=== PATIENT | female | born 1950 | race Caucasian/White ===

== ENCOUNTER → 2017-12-05 10:52 | Outpatient (CLI) | payer MEDICARE, OTHER, SELFPAY ==
[2017-12-05 12:28] LABS: Add Manual Diff / Slide Review NO; Basophils Percent Auto 0.6 % (0-2); Eosinophils Percent Auto 2.2 % (2-4); Hematocrit 39.5 % (36-46); Hemoglobin 12.6 g/dL (12.0-16.0); Lymphocytes Percent Auto 40.2 % (25-40); Mean Corpuscular HGB Conc 31.9 % (30-36); Mean Corpuscular Hemoglobin 31.1 PG (26-34); Mean Corpuscular Volume 97.4 fL (80-100); Monocytes Percent Auto 8.6 % (3-14); Neutrophils Absolute Auto 3500 /uL (3000-5900); Neutrophils Percent Auto 48.4 % (50-75); Platelet Count 346 X10^3/uL (150-400); Red Blood Cell Count 4.06 X10^6/uL (4.0-5.2); Red Cell Distribution Width 13.8 % (11.6-14.8); White Blood Cell Count 7.3 X10^3/uL (4.5-11.0)
[2017-12-05 15:40] LABS: Alanine Aminotransferase 26 IU/L (9-52); Albumin 4.5 g/dL (3.5-5.0); Albumin Globulin Ratio 1.6 (1.0-2.8); Alkaline Phosphatase 54 U/L (38-126); Aspartate Aminotransferase 20 IU/L (14-36); Bilirubin Total 0.5 mg/dL (0.2-1.3); Blood Urea Nitrogen 40 mg/dL (7-17); Carbon Dioxide 20 mmol/L (22-32); Chloride 109 mmol/L (98-107); Estimated Glomerular Filt Rate 32.2 mL/min (>60); Globulin 2.9 g/dL (1.7-4.1); Glucose 86 mg/dL (80-110); HEMOLYSIS < 15 (0-50); Sodium 141 mmol/L (137-145); Total Protein 7.4 g/dL (6.3-8.2)
[2017-12-05 15:51] LABS: Potassium 6.2 mmol/L (3.4-5.1)
== END ==
PROVIDERS: PCP Family Medicine; Visit Provider Family Medicine
DX: I10 Essential (primary) hypertension (principal); N19 Unspecified kidney failure
CPT/HCPCS: 36415; 80053; 85025

== ENCOUNTER → 2017-12-26 09:39 | Outpatient (CLI) | payer MEDICARE, OTHER, SELFPAY ==
[2017-12-26 10:59] LABS: BUN Creatinine Ratio 20.7 (6-22); Blood Urea Nitrogen 31 mg/dL (7-17); Calcium 10.4 mg/dL (8.4-10.2); Carbon Dioxide 20 mmol/L (22-32); Chloride 111 mmol/L (98-107); Estimated Glomerular Filt Rate 34.7 mL/min (>60); Glucose 88 mg/dL (80-110); HEMOLYSIS < 15 (0-50); Potassium 4.8 mmol/L (3.4-5.1); Sodium 143 mmol/L (137-145)
== END ==
PROVIDERS: PCP Family Medicine; Visit Provider Family Medicine
DX: I10 Essential (primary) hypertension (principal)
CPT/HCPCS: 36415; 80048

== ENCOUNTER → 2018-01-21 12:57 | Outpatient (CLI) | payer MEDICARE, OTHER, SELFPAY ==
[2018-01-21 15:18] LABS: BUN Creatinine Ratio 21.5 (6-22); Blood Urea Nitrogen 28 mg/dL (7-17); Calcium 10.6 mg/dL (8.4-10.2); Carbon Dioxide 22 mmol/L (22-32); Chloride 108 mmol/L (98-107); Glucose 89 mg/dL (80-110); HEMOLYSIS < 15 (0-50); Potassium 5.3 mmol/L (3.4-5.1); Sodium 143 mmol/L (137-145)
== END ==
PROVIDERS: PCP Family Medicine; Visit Provider Family Medicine
DX: I10 Essential (primary) hypertension (principal)
CPT/HCPCS: 36415; 80048

== ENCOUNTER → 2018-04-24 09:24 | Outpatient (CLI) | payer MEDICARE, OTHER, SELFPAY ==
[2018-04-24 09:52] LABS: BUN Creatinine Ratio 23.3 (6-22); Blood Urea Nitrogen 28 mg/dL (7-17); Calcium 10.2 mg/dL (8.4-10.2); Carbon Dioxide 22 mmol/L (22-32); Chloride 107 mmol/L (98-107); Estimated Glomerular Filt Rate 44.9 mL/min (>60); Glucose 106 mg/dL (80-110); HEMOLYSIS 44 (0-50); Sodium 138 mmol/L (137-145)
== END ==
PROVIDERS: PCP Family Medicine; Visit Provider Family Medicine
DX: I10 Essential (primary) hypertension (principal)
CPT/HCPCS: 36415; 80048

== ENCOUNTER → 2018-05-03 09:21 | Outpatient (CLI) | payer MEDICARE, OTHER, SELFPAY ==
[2018-05-03 10:20] LABS: Blood Urea Nitrogen 26 mg/dL (7-17); Calcium 11.1 mg/dL (8.4-10.2); Carbon Dioxide 23 mmol/L (22-32); Chloride 106 mmol/L (98-107); Glucose 100 mg/dL (80-110); HEMOLYSIS < 15 (0-50); Potassium 5.3 mmol/L (3.4-5.1); Sodium 139 mmol/L (137-145)
== END ==
PROVIDERS: PCP Family Medicine; Visit Provider Family Medicine
DX: Z01.812 Encounter for preprocedural laboratory examination (principal)
CPT/HCPCS: 36415; 80048; 82565; 84520

== ENCOUNTER → 2018-05-07 08:57 | Outpatient (CLI) | payer MEDICARE, OTHER, SELFPAY ==
--- NOTE | 2018-05-07 08:59 | DI.MRI.S_ITS ---
PROCEDURE: MR ANGIO ABDOMEN WO/W CON INDICATIONS: CKD TECHNIQUE: Precontrast axial and coronal TruFISP through the abdomen. Dynamic coronal MRA using Care Bolus timing during the administration of contrast. Post-contrast axial VIBE through the kidneys. 3-dimensional maximum intensity projection (MIP) reformats constructed. COMPARISON: None. FINDINGS: Image quality: Degraded by motion artifact. Renal arteries: Single bilateral renal arteries are present, which are moderately stenotic at their origins. Abdominal aorta: Aorta is normal in caliber, and is patent. Mesenteric arteries: Celiac trunk, superior and inferior mesenteric arteries are widely patent. Extravascular soft tissues: Visualized solid organs appear normal in size on limited pre-contrast images. No retroperitoneal or mesenteric adenopathy by size criteria. Bowel loops are normal in caliber. No free fluid. No ventral hernias. Bones: Marrow demonstrates normal overall signal. IMPRESSION: 1. Suboptimal dilation secondary to motion artifact. 2. Moderate renal artery origin stenoses bilaterally. 3. Patent mesenteric vasculature. Dictated by: Francine Madera M.D. on 05/07/2018 at 10:34 Approved by: Francine Madera M.D. on 05/07/2018 at 10:37
== END ==
PROVIDERS: PCP Family Medicine; Visit Provider Family Medicine
DX: N18.9 Chronic kidney disease, unspecified (principal); I70.1 Atherosclerosis of renal artery
CPT/HCPCS: C8902

== ENCOUNTER → 2018-05-30 10:33 | Outpatient (CLI) | payer MEDICARE, OTHER, SELFPAY ==
[2018-05-30 11:25] LABS: BUN Creatinine Ratio 24.1 (6-22); Blood Urea Nitrogen 41 mg/dL (7-17); Carbon Dioxide 19 mmol/L (22-32); Chloride 112 mmol/L (98-107); Estimated Glomerular Filt Rate 30.1 mL/min (>60); Glucose 97 mg/dL (80-110); HEMOLYSIS < 15 (0-50); Sodium 140 mmol/L (137-145)
[2018-05-30 11:40] LABS: Potassium 5.7 mmol/L (3.4-5.1)
== END ==
PROVIDERS: PCP Family Medicine; Visit Provider Family Medicine
DX: I10 Essential (primary) hypertension (principal)
CPT/HCPCS: 36415; 80048

== ENCOUNTER → 2018-07-04 10:51 | Outpatient (CLI) | payer MEDICARE, OTHER, SELFPAY ==
[2018-07-04 13:16] LABS: BUN Creatinine Ratio 22.3 (6-22); Blood Urea Nitrogen 29 mg/dL (7-17); Carbon Dioxide 20 mmol/L (22-32); Chloride 110 mmol/L (98-107); Glucose 96 mg/dL (80-110); HEMOLYSIS < 15 (0-50); Sodium 140 mmol/L (137-145)
[2018-07-04 13:19] LABS: Potassium 5.7 mmol/L (3.4-5.1)
== END ==
PROVIDERS: PCP Family Medicine; Visit Provider Family Medicine
DX: I10 Essential (primary) hypertension (principal)
CPT/HCPCS: 36415; 80048

== ENCOUNTER → 2018-08-08 09:40 | Outpatient (CLI) | payer MEDICARE, OTHER, SELFPAY ==
[2018-08-08 10:21] LABS: Add Manual Diff / Slide Review NO; Basophils Absolute Auto 0 /uL (0-100); Basophils Percent Auto 0.7 % (0-2); Eosinophils Absolute Auto 200 /uL (0-450); Eosinophils Percent Auto 4.3 % (2-4); Hematocrit 38.2 % (36-46); Hemoglobin 12.4 g/dL (12.0-16.0); Lymphocytes Absolute Auto 1800 /uL (1100-4500); Lymphocytes Percent Auto 34.1 % (25-40); Mean Corpuscular HGB Conc 32.5 % (30-36); Mean Corpuscular Volume 95.5 fL (80-100); Monocytes Absolute Auto 400 /uL (0-900); Monocytes Percent Auto 8.4 % (3-14); Neutrophils Absolute Auto 2800 /uL (1500-7000); Neutrophils Percent Auto 52.5 % (50-75); Platelet Count 339 X10^3/uL (150-400); White Blood Cell Count 5.3 X10^3/uL (4.5-11.0)
[2018-08-08 10:46] LABS: Alanine Aminotransferase 19 IU/L (9-52); Albumin 4.3 g/dL (3.5-5.0); Albumin Globulin Ratio 1.3 (1.0-2.8); Alkaline Phosphatase 60 U/L (38-126); Aspartate Aminotransferase 23 IU/L (14-36); BUN Creatinine Ratio 23.6 (6-22); Bilirubin Total 0.6 mg/dL (0.2-1.3); Blood Urea Nitrogen 33 mg/dL (7-17); Calcium 10.9 mg/dL (8.4-10.2); Carbon Dioxide 23 mmol/L (22-32); Chloride 113 mmol/L (98-107); Cholesterol 145 mg/dL (140-199); Estimated Glomerular Filt Rate 37.6 mL/min (>60); Globulin 3.2 g/dL (1.7-4.1); Glucose 104 mg/dL (80-110); HDL Cholesterol 47 mg/dL (40-60); HEMOLYSIS < 15 (0-50); LDL Cholesterol Calculated 80 mg/dL (<100); Sodium 143 mmol/L (137-145); Total Protein 7.5 g/dL (6.3-8.2); Triglycerides 91 mg/dL (35-150)
[2018-08-08 11:21] LABS: Thyroid Stimulating Hormone 2.15 uIU/mL (0.47-4.68)
== END ==
PROVIDERS: PCP Family Medicine; Visit Provider Family Medicine
DX: I10 Essential (primary) hypertension (principal)
CPT/HCPCS: 36415; 80053; 80061; 84443; 85025

== ENCOUNTER → 2018-10-17 11:40 | Outpatient (CLI) | payer MEDICARE, OTHER, SELFPAY ==
[2018-10-17 12:29] LABS: Blood Urea Nitrogen 33 mg/dL (7-17); Calcium 11.1 mg/dL (8.4-10.2); Carbon Dioxide 22 mmol/L (22-32); Chloride 110 mmol/L (98-107); Estimated Glomerular Filt Rate 34.6 mL/min (>60); Glucose 125 mg/dL (80-110); HEMOLYSIS < 15 (0-50); Sodium 140 mmol/L (137-145)
== END ==
PROVIDERS: PCP Family Medicine; Visit Provider Family Medicine
DX: I10 Essential (primary) hypertension (principal)
CPT/HCPCS: 36415; 80048

== ENCOUNTER → 2019-01-14 10:59 | Outpatient (CLI) | payer MEDICARE, OTHER, SELFPAY ==
[2019-01-14 12:14] LABS: BUN Creatinine Ratio 24.3 (6-22); Blood Urea Nitrogen 34 mg/dL (7-17); Calcium 11.3 mg/dL (8.4-10.2); Carbon Dioxide 21 mmol/L (22-32); Chloride 110 mmol/L (98-107); Estimated Glomerular Filt Rate 37.5 mL/min (>60); Glucose 101 mg/dL (80-110); HEMOLYSIS < 15 (0-50); Potassium 5.2 mmol/L (3.4-5.1); Sodium 140 mmol/L (137-145)
== END ==
PROVIDERS: PCP Family Medicine; Visit Provider Family Medicine
DX: I10 Essential (primary) hypertension (principal)
CPT/HCPCS: 36415; 80048

== ENCOUNTER → 2019-04-17 10:15 | Outpatient (CLI) | payer MEDICARE, OTHER, SELFPAY ==
[2019-04-17 12:07] LABS: Add Manual Diff / Slide Review NO; Basophils Absolute Auto 0 /uL (0-100); Basophils Percent Auto 0.8 % (0-2); Eosinophils Absolute Auto 200 /uL (0-450); Eosinophils Percent Auto 3.1 % (2-4); Hematocrit 37.9 % (36-46); Hemoglobin 12.6 g/dL (12.0-16.0); Lymphocytes Absolute Auto 1700 /uL (1100-4500); Lymphocytes Percent Auto 30.9 % (25-40); Mean Corpuscular HGB Conc 33.3 % (30-36); Mean Corpuscular Hemoglobin 31.5 PG (26-34); Mean Corpuscular Volume 94.6 fL (80-100); Monocytes Absolute Auto 500 /uL (0-900); Monocytes Percent Auto 9.2 % (3-14); Neutrophils Absolute Auto 3200 /uL (1500-7000); Platelet Count 322 X10^3/uL (150-400); Red Blood Cell Count 4.01 X10^6/uL (4.0-5.2); Red Cell Distribution Width 14.2 % (11.6-14.8); White Blood Cell Count 5.7 X10^3/uL (4.5-11.0)
[2019-04-17 12:34] LABS: Alanine Aminotransferase 16 IU/L (<35); Albumin 4.3 g/dL (3.5-5.0); Albumin Globulin Ratio 1.3 (1.0-2.8); Alkaline Phosphatase 66 U/L (38-126); Aspartate Aminotransferase 26 IU/L (14-36); BUN Creatinine Ratio 26.9 (6-22); Bilirubin Total 0.6 mg/dL (0.2-1.3); Blood Urea Nitrogen 35 mg/dL (7-17); Calcium 11.2 mg/dL (8.4-10.2); Carbon Dioxide 23 mmol/L (22-32); Chloride 109 mmol/L (98-107); Cholesterol 148 mg/dL (140-199); Estimated Glomerular Filt Rate 40.9 mL/min (>60); Globulin 3.4 g/dL (1.7-4.1); Glucose 103 mg/dL (80-110); HDL Cholesterol 43 mg/dL (40-60); HEMOLYSIS < 15 (0-50); LDL Cholesterol Calculated 81 mg/dL (<100); Potassium 4.7 mmol/L (3.4-5.1); Sodium 141 mmol/L (137-145); Total Protein 7.7 g/dL (6.3-8.2); Triglycerides 120 mg/dL (35-150)
== END ==
PROVIDERS: PCP Family Medicine; Referring Provider Family Medicine; Visit Provider Family Medicine
DX: Z51.81 Encounter for therapeutic drug level monitoring (principal); E78.2 Mixed hyperlipidemia; I10 Essential (primary) hypertension; N19 Unspecified kidney failure
CPT/HCPCS: 36415; 80053; 80061; 85025

== ENCOUNTER → 2019-08-12 11:16 | Outpatient (CLI) | payer MEDICARE, OTHER, SELFPAY ==
[2019-08-12 12:16] LABS: Add Manual Diff / Slide Review NO; Basophils Absolute Auto 100 /uL (0-100); Basophils Percent Auto 0.8 % (0-2); Eosinophils Absolute Auto 200 /uL (0-450); Eosinophils Percent Auto 2.9 % (2-4); Hematocrit 38.6 % (36-46); Hemoglobin 12.7 g/dL (12.0-16.0); Lymphocytes Absolute Auto 2800 /uL (1100-4500); Lymphocytes Percent Auto 37.4 % (25-40); Mean Corpuscular HGB Conc 32.9 % (30-36); Mean Corpuscular Hemoglobin 31.3 PG (26-34); Monocytes Absolute Auto 700 /uL (0-900); Monocytes Percent Auto 9.2 % (3-14); Neutrophils Absolute Auto 3700 /uL (1500-7000); Neutrophils Percent Auto 49.7 % (50-75); Platelet Count 359 X10^3/uL (150-400); Red Blood Cell Count 4.06 X10^6/uL (4.0-5.2); Red Cell Distribution Width 14.4 % (11.6-14.8); White Blood Cell Count 7.4 X10^3/uL (4.5-11.0)
[2019-08-12 12:28] LABS: BUN Creatinine Ratio 31.8 (6-22); Blood Urea Nitrogen 50 mg/dL (7-17); Calcium 11.4 mg/dL (8.4-10.2); Carbon Dioxide 21 mmol/L (22-32); Chloride 112 mmol/L (98-107); Estimated Glomerular Filt Rate 32.9 mL/min (>60); Glucose 109 mg/dL (80-110); HEMOLYSIS < 15 (0-50); Potassium 5.2 mmol/L (3.4-5.1); Sodium 140 mmol/L (137-145)
== END ==
PROVIDERS: PCP Family Medicine; Referring Provider Family Medicine; Visit Provider Family Medicine
DX: I10 Essential (primary) hypertension (principal); N19 Unspecified kidney failure
CPT/HCPCS: 36415; 80048; 85025

== ENCOUNTER → 2019-09-16 11:24 | Outpatient (CLI) | payer MEDICARE, OTHER, SELFPAY ==
[2019-09-16 12:29] LABS: BUN Creatinine Ratio 22.2 (6-22); Blood Urea Nitrogen 34 mg/dL (7-17); Calcium 11.5 mg/dL (8.4-10.2); Carbon Dioxide 21 mmol/L (22-32); Chloride 110 mmol/L (98-107); Estimated Glomerular Filt Rate 33.8 mL/min (>60); Glucose 91 mg/dL (80-110); HEMOLYSIS < 15 (0-50); Sodium 138 mmol/L (137-145)
[2019-09-16 12:40] LABS: Potassium 5.5 mmol/L (3.4-5.1)
== END ==
PROVIDERS: PCP Family Medicine; Referring Provider Family Medicine; Visit Provider Family Medicine
DX: N19 Unspecified kidney failure (principal)
CPT/HCPCS: 36415; 80048

== ENCOUNTER → 2019-11-10 10:42 | Outpatient (CLI) | payer MEDICARE, OTHER, SELFPAY ==
[2019-11-10 11:08] LABS: Add Manual Diff / Slide Review NO; Basophils Absolute Auto 0 /uL (0-100); Basophils Percent Auto 0.6 % (0-2); Eosinophils Absolute Auto 200 /uL (0-450); Hematocrit 38.6 % (36-46); Hemoglobin 12.7 g/dL (12.0-16.0); Lymphocytes Absolute Auto 1900 /uL (1100-4500); Lymphocytes Percent Auto 36.7 % (25-40); Mean Corpuscular Hemoglobin 31.1 PG (26-34); Mean Corpuscular Volume 94.2 fL (80-100); Monocytes Absolute Auto 500 /uL (0-900); Monocytes Percent Auto 9.9 % (3-14); Neutrophils Absolute Auto 2600 /uL (1500-7000); Neutrophils Percent Auto 49.8 % (50-75); Platelet Count 344 X10^3/uL (150-400); Red Cell Distribution Width 13.9 % (11.6-14.8); White Blood Cell Count 5.2 X10^3/uL (4.5-11.0)
[2019-11-10 11:28] LABS: BUN Creatinine Ratio 21.4 (6-22); Blood Urea Nitrogen 34 mg/dL (7-17); Calcium 11.2 mg/dL (8.4-10.2); Carbon Dioxide 29 mmol/L (22-32); Chloride 105 mmol/L (98-107); Estimated Glomerular Filt Rate 32.3 mL/min (>60); Glucose 103 mg/dL (80-110); HEMOLYSIS < 15 (0-50); Sodium 138 mmol/L (137-145)
[2019-11-10 11:29] LABS: Potassium 5.6 mmol/L (3.4-5.1)
== END ==
PROVIDERS: PCP Family Medicine; Referring Provider Family Medicine; Visit Provider Family Medicine
DX: E03.9 Hypothyroidism, unspecified (principal)
CPT/HCPCS: 36415; 80048; 85025

== ENCOUNTER → 2020-03-31 12:06 | Outpatient (CLI) | payer MEDICARE, OTHER, SELFPAY ==
--- NOTE | 2020-03-31 12:08 | DI.NM.S_ITS ---
PROCEDURE: NM PARATHYROID SPECT RADIOPHARMACEUTICAL: 25.9 mCi Tc-99m sestamibi IV. INDICATIONS: Primary hyperparathyroidism TECHNIQUE: After intravenous administration of Tc-99m sestamibi, anterior planar images of the neck and mediastinum were obtained at approximately 10 minutes and 2-3 hours. SPECT images were acquired after the 10 minute planar images. COMPARISON: None. FINDINGS: On the early images, the thyroid gland is bilobed and has normal size and morphology. There is focal increased activity in the inferior aspect of the right thyroid bed. The delayed images show preferential tracer retention in the inferior thyroid bed suggesting parathyroid adenoma. The SPECT images demonstrate focal increased activity in the posterior inferior right thyroid bed. IMPRESSION: Suspect a parathyroid adenoma in the posterior inferior right thyroid bed. Dictated by: Sean Palma M.D. on 03/31/2020 at 15:22 Approved by: Sean Palma M.D. on 03/31/2020 at 15:25
--- OUTSIDE RECORDS SUMMARY | 2020-06-10 08:37 | XMS_ITS | Referral Summary ---
:1950 Author Organization [facility] Address [address] [place] [id number] Care Team Providers Name Role Phone Facundo Suazo Primary Care Provider Reason for Referral Surgical (Routine) Status Reason Specialty Diagnoses / Referred By Referred To Procedures Contact Contact Authorized Specialty General Surgery Diagnoses Parathyroid adenoma Kev Iyer MD [address] [address] [place] [address] Phone: Electronically signed by Kev Iyer MD at Reason for Visit Reason Onset Date Comments Test Results 04/06/2020 Test Result Follow-up 04/06/2020 Encounter Details Date Type Department Care Team Description 04/06/2020 Telephone [facility] Kev Iyer MD Test Results; Test Clinics Nephrology [address] [place] [address] Result Follow-up [id number] [place] [address] [phone] Allergies Active Allergy Reactions Severity Noted Date Comments Cat Dander 03/05/2020 documented as of this encounter (statuses as of 04/15/2020) Medications Medication Sig Dispensed Refills Start Date End Date Status amLODIPine (NORVASC) 2 (two) times a day 0 0 Active 5 mg tablet atorvastatin 0 11/19/2019 Active (LIPITOR) 10 mg tablet aspirin 81 mg EC Take 81 mg by mouth 0 Active tablet fexofenadine (Antonieta 0 07/26/2006 Active Allergy) 180 mg tablet cholecalciferol, Take 125 mg by 0 01/02/2013 Active vitamin D3, 50 mcg mouth (2,000 unit) capsule [id number] Take by mouth 0 Active oil 300-1,000 mg capsule ascorbic acid, Take 1,000 mg by 0 Active vitamin C, (VITAMIN mouth C) 500 mg tablet fluticasone Administer 1 spray 0 Active propionate (FLONASE) into affected 50 mcg/actuation nostril(s) as nasal spray needed losartan (COZAAR) 25 Take 3 tablets by 0 Active mg tablet mouth 2 (two) times a day metoprolol succinate Take 100 mg by 0 Active XL (TOPROL-XL) 100 mg mouth 2 (two) times 24 hr tablet a day documented as of this encounter (statuses as of 04/15/2020) Active Problems Problem Noted Date Hypercalcemia 03/05/2020 CKD stage G3b/A1, GFR 30-44 and albumin creatinine rat io <30 mg/g 03/05/2020 documented as of this encounter (statuses as of 04/15/2020) Social History Tobacco Use Types Packs/Day Years Used Date Never Smoker Smokeless Tobacco: Never Used Alcohol Use Drinks/Week oz/Week Comments Yes Alcohol Habits Answer Date Recorded How often do you have a drink containing alcohol? 2-4 times a month 01/05/2020 How many drinks containing alcohol do you have on a Not aske d 01/05/2020 typical day when you are drinking? How often do you have six or more drinks on one Not asked 01/05/2020 occasion? Sex Assigned at Date Recorded Not on file Job Start Date Occupation Industry Not on file Not on file Not on file documented as of this encounter Miscellaneous Notes Telephone Encounter - Madisyn Chiang RN - 04/15/2020 3:42 PM PSTSpoke with pt to let her know plan to send referral to [facility]. ddendum Note - Kev Iyer MD - 04/15/2020 2:07 PM PST Addended by: KEV IYER on: 04/15/2020 02:07 PM Modules accepted: Orders elephone Encounter - Kev Iyer MD - 04/15/2020 2:07 PM PSTI ordered referral to Dr. Licona for his opinion. Kev Iyer MD elephone Encounter - Madisyn Chiang RN - 04/13/2020 11:07 AM PSTDr Sixto Licona at [facility] might do it but needs to consult with pt before deciding, otherwise Dr Romulo Villanueva at [facility] has done for our pts before. elephone Encounter - Kev Iyer MD - 04/12/2020 4:45 PM PSTCarol and I spoke. She is interested in surgery for her suspected right inferior parathyroid adenoma. Please find out if there is a surgeon in [place] who does these surgeries as she would prefer to be done close to home. Kev Iyer MD elephone Encounter - Bianca Johnson - 04/12/2020 9:09 AM PSTPt is calling back and asking for Dr. Iyer to call her again. Best number: [phone] OK TO [facility] elephone Encounter - Kev Iyer MD - 04/09/2020 5:25 PM PSTI called Kirsten. Her NM Parathyroid scan does show a suspicion of a posterior inferior parathyroid ad enoma. I suggested seeing a surgeon. She will discuss this with her and call me back. Kev Iyer MD elephone Encounter - Dipti Fang MA - 04/09/2020 5:09 PM PSTPlease advise. Telephone Encounter - Dalila Victoria - 04/09/2020 2:17 PM PSTPlease call the Pt with the results [phone] elephone Encounter - CodyHeidiDalila R - 04/06/2020 9:29 AM PSTReceived lab results from [facility] elephone Encounter - Ross, Dalila R - 04/06/2020 9:21 AM PSTCalled [facility] spoke with Lara to obtain labs, most recent was 12.02.20 which we have in system already. Called Kirsten, she got imaging done at [facility], will call to obtain results for Dr. Iyer to review. elephone Encounter - Cesia Reyna - 04/06/2020 9:10 AM PSTPt calling to get results from thyroid From last week . Please call to discuss @[phone] Ok to leave detail message . documented in this encounter Plan of Treatment Upcoming Encounters Date Type Specialty Care Team Description 07/07/2020 Office Visit Nephrology Kev Iyer MD [address] [place] [id number] Scheduled Referrals Name Type Priority Associated Diagnoses Order S chedule Referral to Outpatient Referral Routine Parathyroid adenoma O rdered: General Surgery 04/15/2020 documented as of this encounter Visit Diagnoses Diagnosis Parathyroid adenoma - Primary Benign neoplasm of parathyroid gland documented in this encounter Insurance Payer Benefit Plan / Group Subscriber ID Effective Dates Phone Address Type MEDICARE MEDICARE PART A AND B [id number] 2016-Present SUPP FOR LIFE SUPP [id number] 2016-Present documented as of this encounter Advance Directives Documents on File Type Date Recorded 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
== END ==
PROVIDERS: PCP Family Medicine; Referring Provider Internal Medicine Nephrology; Visit Provider Internal Medicine Nephrology
DX: E21.0 Primary hyperparathyroidism (principal)
CPT/HCPCS: 78071; A9500

== ENCOUNTER → 2021-12-15 10:15 | Outpatient (CLI) | payer MEDICARE, OTHER, SELFPAY ==
[2021-12-15 12:46] LABS: Add Manual Diff / Slide Review NO; Basophils Absolute Auto 0 /uL (0-100); Basophils Percent Auto 0.5 % (0-2); Eosinophils Absolute Auto 200 /uL (0-450); Eosinophils Percent Auto 2.8 % (2-4); Hematocrit 38.5 % (36-46); Hemoglobin 12.6 g/dL (12.0-16.0); Lymphocytes Absolute Auto 2400 /uL (1100-4500); Lymphocytes Percent Auto 28.8 % (25-40); Mean Corpuscular HGB Conc 32.8 % (30-36); Mean Corpuscular Hemoglobin 29.9 PG (26-34); Mean Corpuscular Volume 91.2 fL (80-100); Monocytes Absolute Auto 600 /uL (0-900); Monocytes Percent Auto 7.4 % (3-14); Neutrophils Absolute Auto 5000 /uL (1500-7000); Neutrophils Percent Auto 60.5 % (50-75); Platelet Count 419 X10^3/uL (150-400); Red Blood Cell Count 4.23 X10^6/uL (4.0-5.2); Red Cell Distribution Width 14.9 % (11.6-14.8); White Blood Cell Count 8.3 X10^3/uL (4.5-11.0)
[2021-12-15 13:07] LABS: Alanine Aminotransferase 21 IU/L (<35); Albumin 4.4 g/dL (3.5-5.0); Albumin Globulin Ratio 1.3 (1.0-2.8); Alkaline Phosphatase 69 U/L (38-126); Aspartate Aminotransferase 23 IU/L (14-36); Bilirubin Total 0.5 mg/dL (0.2-1.3); Blood Urea Nitrogen 36 mg/dL (7-17); Calcium 9.6 mg/dL (8.4-10.2); Carbon Dioxide 21 mmol/L (22-32); Chloride 108 mmol/L (98-107); Cholesterol 183 mg/dL (140-199); Estimated Glomerular Filt Rate 33 mL/min (>60); Globulin 3.5 g/dL (1.7-4.1); Glucose 97 mg/dL (80-110); HDL Cholesterol 48 mg/dL (40-60); HEMOLYSIS 19 (0-50); LDL Cholesterol Calculated 112 mg/dL (<100); Potassium 4.1 mmol/L (3.4-5.1); Sodium 140 mmol/L (137-145); Total Protein 7.9 g/dL (6.3-8.2); Triglycerides 115 mg/dL (35-150)
[2021-12-15 14:06] LABS: TSH w/ Reflex to FT4 2.73 uIU/mL (0.47-4.68)
[2021-12-16 09:44] LABS: Calcium 9.8 mg/dL (8.7-10.3); Parathyroid Hormone, Intact 58 pg/mL (15-65)
== END ==
PROVIDERS: PCP Family Medicine; Referring Provider Family Medicine; Visit Provider Family Medicine
DX: E78.2 Mixed hyperlipidemia (principal); E83.52 Hypercalcemia; I10 Essential (primary) hypertension; I70.1 Atherosclerosis of renal artery
CPT/HCPCS: 36415; 80053; 80061; 82310; 83970; 84443; 85025

== ENCOUNTER → 2023-04-10 11:14 | Outpatient (CLI) | payer MEDICARE, OTHER, SELFPAY ==
--- NOTE | 2023-04-10 | DI.MG.S_ITS ---
BILATERAL DIGITAL SCREENING MAMMOGRAM 3D/2D WITH CAD: 04/10/2023 CLINICAL: Routine screening. Comparison is made to exams dated: 04/07/2014 mammogram, 06/12/2011 mammogram - [facility], and 11/04/2009 mammogram - [facility]. Both breasts are almost entirely fatty (category a/<25% glandular tissue). Current study was also evaluated with a Computer Aided Detection (CAD) system. No significant masses, calcifications, or other findings are seen in either breast. There has been no significant interval change. IMPRESSION: NEGATIVE There is no mammographic evidence of malignancy. A 1 year screening mammogram is recommended. Based on the Tyrer Cuzick model (a risk assessment model) the patient's lifetime risk is 2.7% and her 10 year risk is 1.8%. According to the ACR, ACS, and NCCN guidelines, an annual breast MRI exam along with mammogram is recommended if the patient's lifetime risk is 20% or greater. This exam was interpreted at Station ID: [id number]. NOTE: For mammograms, a report in lay terms will be sent to the patient. Approximately 15% of breast malignancies will not be visualized mammographically. In the management of a palpable breast mass, a negative mammogram must not discourage biopsy of a clinically suspicious lesion. Electronically Signed By: Sheree prabhakar/mariia:04/10/2023 16:38:03 letter sent: Normal Exam ACR BI-RADS Category 1: Negative 3341F
== END ==
PROVIDERS: PCP Family Medicine; Referring Provider Family Medicine; Visit Provider Family Medicine
DX: Z12.31 Encounter for screening mammogram for malignant neoplasm of breast (principal)
CPT/HCPCS: 77063; 77067

== ENCOUNTER 2023-05-18 08:55 | Day surgery (SDC) | payer MEDICARE, OTHER, SELFPAY ==
--- NOTE | 2023-05-18 | PATH_ITS ---
[facility] Accession Number: [id number] No. of containers..02 Tissue . 01 Material submitted: . PART A: colon - DESCENDING COLON POLYP PART B: colon - CECAL POLYP . 01 Diagnosis: A. Colon, descending, polyp biopsy: Tubular adenoma. -- B. Colon, cecum, polyp biopsy: Benign polypoid colonic mucosa. Negative for dysplasia. TXN 05/23/2023 1135 Local . 01 Electronically signed: . Vicki Pisano MD, Pathologist NPI- [id number] . 01 Gross description: . Part A: DESCENDING COLON POLYP: Received in formalin are 2 fragment(s) of lemos, soft tissue measuring 0.1 x 0.1 x 0.1 cm to 0.3 x 0.3 x 0.3 cm submitted entirely in 1 cassette(s) Part B: CECAL POLYP: Received in formalin is 1 fragment(s) of lemos, soft tissue measuring 0.3 x 0.2 x 0.2 cm submitted entirely in 1 cassette(s) /EMILY 05/21/2023 1808 Local . 01 Pathologist provided ICD-10: Z12.11 . 01 CPT . 553939, 521945 Specimen Comment: A courtesy copy of this report has been sent to [phone] Performed at: 01 [facility] [address] [place] [address], [place], [place] [id number] MD Timur Vargas MD Phone: [phone]
[2023-05-18 11:04] VITALS: BP 137/66; PULSE 62; RESP 14; TEMP 37.1
[2023-05-18] MEDS: LACTATED RINGERS 1,000 ML 42 ML IV (11:13)
--- NOTE | 2023-05-18 11:58 | PM.OP.COLON ---
Operative Date/Time/Diagnoses Date of procedure: 05/18/23 Time of procedure: 11:58 Pre-op diagnosis: Colon cancer screening Procedure & Clinicians Study performed: colonoscopy with anesthesia and cold forcep polypectomy x2 Same procedure as scheduled: Yes Indications: colon cancer screening Surgeon: Italia Rae Procedure Notes Procedure in detail: Preop diagnosis: Colon cancer screening Postop diagnosis: Same Operative procedure: Colonoscopy with cold forceps polypectomy using anesthesia Procedure: Patient placed in a lateral position. Rectal exam performed showing normal tone no masses. Scope was inserted into the rectum and advanced to ileocecal valve with minimal difficulty. Insufflation extraction scope including retroflex had the above findings. There were 2 polypectomies done using cold forceps polypectomies see description in the findings Findings: Small sessile polyp 2 mm at the cecum, and a sessile polyp 3 mm in the descending colon Impression: 2 small polypectomies 1 in the cecum, 1 in the descending colon. Await pathology Plan: Repeat colonoscopy in 5 years unless otherwise indicated in change in clinical condition Findings: polyp(s) (Cecal polyp 2 mm, descending colon polyp 2 mm) Specimen(s): other (To polyps described above) Complications: none Post-procedure Recommendations: Colonoscopy in 5 years Follow up: as needed Disposition: PACU
--- NOTE | 2023-05-18 12:06 | PM.HP.1 ---
History of Present Illness History of Present Illness Date Patient Seen: 05/18/23 Time Patient Seen: 12:07 Chief complaint: [facility] Narrative: Colon cancer screening. last colonoscopy more than 10 years ago. No GI symptoms PFSH Medical History Skin lesion of cheek Hyperparathyroidism Preventative health care Chronic kidney disease Hyperlipidemia Vision disorder Seasonal allergies (~1999) Migraines (~2006) Mumps Measles Chicken pox Diverticular disease (~2014) Colon polyps (~2009) Renal failure (03/09/15) Surgical History Anesthesia History of cataract removal with insertion of prosthetic lens (~03/2014) Status post knee surgery (~08/2004) Status post colonoscopy (~11/2013) Family History Brother Age: 74 Hypertension Child Age: 47 Mental health problem Sister Age: 77 Hypertension Mother No problems noted. Social History Smoking Status: Never smoker alcohol intake: current substance use type: does not use Meds Home Medications and Allergies Home Medications Medication Instructions Recorded Confirmed Type losartan 50 mg tablet 50 mg PO DAILY #90 tabs 10/06/22 05/18/23 Rx losartan 25 mg tablet 25 mg PO DAILY #90 tabs 10/09/22 05/18/23 Rx metoprolol succinate 100 mg 100 mg PO BID #180 tabs 10/27/22 05/18/23 Rx tablet,extended release 24 hr atorvastatin 10 mg tablet (Lipitor) 10 mg PO HS #90 tabs 01/01/23 05/18/23 Rx amlodipine 10 mg tablet 10 mg PO DAILY #90 tabs 03/05/23 05/18/23 Rx sodium,potassium,mag sulfates 17.5 See Rx Instructions PO .COMPLEX 03/28/23 05/18/23 Rx gram-3.13 gram-1.6 gram oral soln #354 mL (Suprep Bowel Prep Kit) Allergies Allergy/AdvReac Type Severity Reaction Status Date / Time cat dander Allergy Mild Verified 05/18/23 11:01 Review of Systems Review of Systems ROS: Yes All systems reviewed with the patient and are negative except as otherwise documented Exam Vital Signs (past 8 hours): - 05/18/23 11:04 Temperature 98.8 F Pulse Rate 62 Respiratory Rate 14 Blood Pressure 137/66 Oxygen Delivery Method Room Air Oxygen Flow Rate 100 Oxygen Delivery Method Room Air Oxygen Flow Rate 100 Const General: cooperative and comfortable HENMT Head: normocephalic and atraumatic Eyes Periorbital: periorbital findings normal Sclera: sclerae normal Neck Neck: trachea midline Resp Effort & Inspection: normal respiratory effort and able to speak in complete sentences Cardio Rate: regular rate Rhythm: regular rhythm GI Palpation: soft and No tender Skin General: atrophy Neuro General: patient alert, patient awake and patient oriented x3 Psych Mental Status: mental status grossly normal Affect: normal affect Judgment: judgment good Assessment & Plan Assessment & Plan narrative: colon cancer screening using colonoscopy with anesthesia Time Spent With Patient Time with patient: less than 30 minutes
[2023-05-18 12:34] VITALS: BP 91/54; PULSE 61; RESP 15; TEMP 36.2; O2SAT 96
[2023-05-18 12:39] VITALS: BP 90/53; PULSE 61; RESP 12; O2SAT 96
[2023-05-18 12:44] VITALS: BP 103/56; PULSE 56; RESP 17; O2SAT 97
[2023-05-18 12:49] VITALS: BP 105/59; PULSE 58; RESP 17; TEMP 36.2; O2SAT 97
== END 2023-05-18 12:57 | disposition home or self-care (01) ==
PROVIDERS: PCP Family Medicine; Referring Provider Surgery; Visit Provider Surgery
PROC: 0DJD8ZZ Inspection of Lower Intestinal Tract, Via Natural or Artificial Opening Endoscopic (ICD-10-PCS; CPT 45378; principal; 2023-05-18 10:15)
DX: Z12.11 Encounter for screening for malignant neoplasm of colon (principal); D12.4 Benign neoplasm of descending colon; K63.5 Polyp of colon
CPT/HCPCS: 45380; J2704

== ENCOUNTER → 2024-09-03 11:05 | Outpatient (CLI) | payer MEDICARE, OTHER, SELFPAY ==
--- NOTE | 2024-09-03 11:06 | DI.MG.S_ITS ---
MM screening mammo BI: 09/03/2024. BI-RADS: 1 CLINICAL: 74-year old female for bilateral screening mammogram. Tyrer-Cuzick lifetime risk of 2.7%. No personal or first-degree family history of breast cancer. The patient had a prior right breast biopsy. PRIOR EXAMS 04/10/2023. MAMMOGRAPHY TECHNIQUE: 2D and 3D (tomosynthesis) digital mammographic views obtained, with additional images as needed for full coverage. Current study was also evaluated with a Computer Aided Detection (CAD) system. DENSITY A. The breasts are almost entirely fatty. MAMMOGRAPHY FINDINGS Bilateral: No suspicious mass, asymmetry, microcalcification, or other abnormality seen. IMPRESSION: * No evidence of malignancy. RECOMMENDATIONS Bilateral * Annual screening mammography. OVERALL ASSESSMENT CATEGORY BI-RADS-1: Negative. The [employer] recommends annual screening mammography beginning at age 40 for women with average risk of breast cancer. ELECTRONICALLY SIGNED: Julianne Godoy M.D. on 09/03/2024 at 10:12:29 PM PT Interpreting Station ID: [id number]
== END ==
PROVIDERS: PCP Family Medicine; Referring Provider Family Medicine; Visit Provider Family Medicine
DX: Z12.31 Encounter for screening mammogram for malignant neoplasm of breast (principal); R92.313 Mammographic fatty tissue density, bilateral breasts
CPT/HCPCS: 77063; 77067